=== PATIENT | male | born 1940 | race Caucasian/White ===

== ENCOUNTER 2017-03-20 00:08 | Emergency (ER) | payer MEDICARE ==
[~2017-03-20] VITALS: Ht 182.9 cm; Wt 110.0 kg
[~2017-03-20 00:08] MED LIST: ASPI81TA45 PO; MULT1TAB PO
[2017-03-20 00:18] VITALS: BP 159/78; PULSE 84; RESP 18; TEMP 98.3; O2SAT 98
[2017-03-20 00:20] VITALS: RESP 18; O2SAT 98
[2017-03-20] MEDS ORDERED: SODIUM CHLORIDE 0.9% FLUSH 10 ML FLUSH IVF PRN (00:30)
[2017-03-20 00:52] LABS: AUTOMATED NEUTROPHIL # 7.5 TH/MM3 (1.8-7.7); BASOPHIL % 0.3 % (0.0-2.0); EOSINOPHIL # 0.2 TH/MM3 (0-0.4); EOSINOPHIL % 1.6 % (0.0-4.0); HEMATOCRIT 42.7 % (39.0-51.0); HEMO FLAGS DIFF FINAL; LYMPH % 17.4 % (9.0-44.0); LYMPHOCYTE # 1.8 TH/MM3 (1.0-4.8); MEAN CELL VOLUME 91.1 FL (80.0-100.0); MEAN CORPUSCULAR HEMOGLOBIN 31.8 PG (27.0-34.0); MEAN CORPUSCULAR HGB CONC 34.8 % (32.0-36.0); MONO % 7.9 % (0.0-8.0); NEUT % 72.8 % (16.0-70.0); PLATELET COUNT 167 TH/MM3 (150-450); RED BLOOD COUNT 4.68 MIL/MM3 (4.50-5.90); RED CELL DISTRIBUTION WIDTH 14.2 % (11.6-17.2); WHITE BLOOD COUNT 10.3 TH/MM3 (4.0-11.0)
--- NOTE | 2017-03-20 00:53 | RADRPT ---
EXAM DATE/TIME: 03/20/2017 00:31 [facility] COMPARISON: CHEST SINGLE AP, October 21, 2015, 12:39. INDICATIONS : Shortness of breath. MEDICAL HISTORY : None. SURGICAL HISTORY : None. ENCOUNTER: Initial ACUITY: 1 day PAIN SCORE: 0/10 LOCATION: Bilateral chest FINDINGS: A single view of the chest demonstrates the lungs to be symmetrically aerated without evidence of mas s, infiltrate or effusion. The cardiomediastinal contours are unremarkable. Osseous structures are intact. CONCLUSION: 1. No acute cardiopulmonary disease. Jeramie Mckeon MD on March 20, 2017 at 0:51 Board Certified Radiologist. This report was verified electronically.
--- NOTE | 2017-03-20 00:58 | PD ---
HPI Chief Complaint: Respiratory Symptoms Time Seen by Provider: 00:15 Travel History International Travel<30 days: No Contact w/Intl Traveler<30days: No Traveled to known affect area: No History of Present Illness HPI 76-year-old male with history of sleep apnea on CPAP, brought in by ambulance after waking up from sleep feeling short of breath. EMS reports that his O2 saturation was 98% on room air when they arrived and he was in no apparent distress. Here in the emergency department the patient states he is feeling improved. He denies ever having chest pain. No fevers, chills, cough, or recent illness. He reports that he had a cardiac catheter about 6 months ago and was told that his vessels are clean. No history of DVT or PE. 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) Hepatitis: No Hiatal Hernia: No Immune Disorder: No Musculoskeletal: Yes (HX OF R KNEE REPLACEMENT) Neurologic: No Psychiatric: Yes (SOMEWHAT CLAUSTROPHOBIC) Reproductive: No Respiratory: Yes (SLEEP APNEA, USES CPAP) Radiation Therapy: Yes (PROSTATE) Sleep Apnea: Yes (cpap at night) Thyroid Disease: No Tetanus Vaccination: Unknown Influenza Vaccination: Yes PNEUMOCCOCAL Vaccine (Year): 1 Past Surgical History Abdominal Surgery: Yes (UMBILICAL HERNIA 30 YRS AGO ) Body Medical Devices: LENS LEFT EYE Cardiac Surgery: No Ear Surgery: No Endocrine Surgery: No Eye Surgery: Yes (CATARACT SURGERY L EYE 1998) Genitourinary Surgery: Yes Joint Replacement: Yes (TOTAL RIGHT KNEE) Oral Surgery: No Pacemaker: No Thoracic Surgery: No Other Surgery: Yes Social History Alcohol Use: No Tobacco Use: No Substance Use: No Allergies-Medications (Allergen,Severity, Reaction): Coded Allergies: Cephalexin (Verified Allergy, Intermediate, Diarrhea, 03/20/17) Penicillin (Unverified Adverse Reaction, Intermediate, DIARRHEA,N/V, DEHYDRATION, 03/20/17) Reported Meds & Prescriptions Reported Meds & Active Scripts Active No Active Prescriptions or Reported Medications Review of Systems Except as stated in HPI: all other systems reviewed are Neg Physical Exam Narrative GENERAL: Well-developed, well-nourished, comfortable, no acute distress. SKIN: Focused skin assessment warm/dry. HEAD: Atraumatic. Normocephalic. EYES: Pupils equal and round. No scleral icterus. No injection or drainage. ENT: Mucous membranes pink and moist. NECK: Trachea midline. No JVD. CARDIOVASCULAR: Regular rate and rhythm. RESPIRATORY: No accessory muscle use. Clear to auscultation. Breath sounds equal bilaterally. GASTROINTESTINAL: Abdomen soft, non-tender, nondistended. MUSCULOSKELETAL: No obvious deformities. No clubbing. No cyanosis. No edema. NEUROLOGICAL: Awake and alert. No obvious cranial nerve deficits. Motor grossly within normal limits. Normal speech. PSYCHIATRIC: Appropriate mood and affect; insight and judgment normal. Data Data Last Documented VS Vital Signs Date Time Temp Pulse Resp B/P Pulse Ox O2 Delivery O2 Flow Rate FiO2 03/20/17 00:20 18 98 Room Air 03/20/17 00:20 84 03/20/17 00:18 98.3 159/78 Orders Complete Blood Count With Diff (03/20/17 00:16) Comprehensive Metabolic Panel (03/20/17 00:16) B-Type Natriuretic Peptide (03/20/17 00:16) D-Dimer (03/20/17 00:16) Act Partial Throm Time (Ptt) (03/20/17 00:16) Prothrombin Time / Inr (Pt) (03/20/17 00:16) Ckmb (Isoenzyme) Profile (03/20/17 00:16) Troponin I (03/20/17 00:16) Iv Access Insert/Monitor (03/20/17 00:16) Electrocardiogram (03/20/17 00:16) Ecg Monitoring (03/20/17 00:16) Oximetry (03/20/17 00:16) Chest, Single Ap (03/20/17 00:16) Sodium Chloride 0.9% Flush (Ns Flush) (03/20/17 00:30) Ct Pulmonary Angiogram (03/20/17 01:03) CKMB (03/20/17 00:25) CKMB% (03/20/17 00:25) Iohexol 350 Inj (Omnipaque 350 Inj) (03/20/17 02:50) Labs Laboratory Tests Test 03/20/17 00:25 White Blood Count 10.3 TH/MM3 Red Blood Count 4.68 MIL/MM3 Hemoglobin 14.9 GM/DL Hematocrit 42.7 % Mean Corpuscular Volume 91.1 FL Mean Corpuscular Hemoglobin 31.8 PG Mean Corpuscular Hemoglobin 34.8 % Concent Red Cell Distribution Width 14.2 % Platelet Count 167 TH/MM3 Mean Platelet Volume 11.0 FL Neutrophils (%) (Auto) 72.8 % Lymphocytes (%) (Auto) 17.4 % Monocytes (%) (Auto) 7.9 % Eosinophils (%) (Auto) 1.6 % Basophils (%) (Auto) 0.3 % Neutrophils # (Auto) 7.5 TH/MM3 Lymphocytes # (Auto) 1.8 TH/MM3 Monocytes # (Auto) 0.8 TH/MM3 Eosinophils # (Auto) 0.2 TH/MM3 Basophils # (Auto) 0.0 TH/MM3 CBC Comment DIFF FINAL Differential Comment Prothrombin Time 11.2 SEC Prothromb Time International 1.0 RATIO Ratio Activated Partial 25.7 SEC Thromboplast Time D-Dimer Quantitative (PE/DVT) 1.57 MG/L FEU Sodium Level 141 MEQ/L Potassium Level 4.2 MEQ/L Chloride Level 111 MEQ/L Carbon Dioxide Level 23.8 MEQ/L Anion Gap 6 MEQ/L Blood Urea Nitrogen 16 MG/DL Creatinine 1.06 MG/DL Estimat Glomerular Filtration 68 ML/MIN Rate Random Glucose 111 MG/DL Calcium Level 8.2 MG/DL Total Bilirubin 0.5 MG/DL Aspartate Amino Transf 35 U/L (AST/SGOT) Alanine Aminotransferase 34 U/L (ALT/SGPT) Alkaline Phosphatase 142 U/L Total Creatine Kinase 124 U/L Creatine Kinase MB 1.5 NG/ML Troponin I LESS THAN 0.02 NG/ML B-Type Natriuretic Peptide 16 PG/ML Total Protein 7.0 GM/DL Albumin 3.3 GM/DL [facility] Medical Decision Making Medical Screen Exam Complete: Yes Emergency Medical Condition: Yes Medical Record Reviewed: Yes Interpretation(s) EKG: Sinus, rate 82, normal axis, normal intervals, no acute ischemic abnormality. Differential Diagnosis Pulmonary edema, ACS, PE, pneumothorax, pneumonia, panic attack Narrative Course Initial vital signs show heart rate 84, blood pressure 159/78, pulse ox 98% on room air, oral temp of 98.3F. CBC is unremarkable. CMP is unremarkable. BNP is 16. Cardiac concerns are negative. D-dimer is 1.57. Chest x-ray: No acute cardio pulmonary disease. CT pulmonary angiogram: CONCLUSION: 1. No evidence of pulmonary embolism. Patient was made aware of all findings. He is resting comfortably while in the emergency department. No further episodes of shortness of breath. He never had any chest pain. He believes he may have had a slight panic attack. I believe he is stable for discharge home with outpatient follow-up with his primary care physician this week. He was informed on when to return to the emergency department. He verbalizes understanding and agreement with plan. Diagnosis Primary Impression: Shortness of breath Referrals: Primary Care Physician 3 days Additional Instructions: Follow-up with your primary care physician this week. Return to the emergency department for worsening symptoms or any other concerns. Scripts No Active Prescriptions or Reported Meds Disposition: 01 DISCHARGE HOME Condition: Stable Edson Irby MD March 20, 2017 00:58
[2017-03-20 01:00] LABS: APTT (PATIENT) 25.7 SEC (24.3-30.1); PROTHROMBIN TIME - PATIENT 11.2 SEC (9.8-11.6)
[2017-03-20 01:06] LABS: ALKALINE PHOSPHATASE 142 U/L (45-117); ALT (GPT) 34 U/L (12-78); ANION GAP 6 MEQ/L (5-15); AST (GOT) 35 U/L (15-37); BICARBONATE 23.8 MEQ/L (21.0-32.0); BLOOD UREA NITROGEN 16 MG/DL (7-18); CHLORIDE 111 MEQ/L (98-107); CREATINE KINASE 124 U/L (39-308); GLOMERULAR FILTRATION RATE 68 ML/MIN (>89); POTASSIUM 4.2 MEQ/L (3.5-5.1); SODIUM (NA) 141 MEQ/L (136-145); TOTAL BILIRUBIN ADULT 0.5 MG/DL (0.2-1.0)
[2017-03-20 01:19] LABS: CKMB 1.5 NG/ML (0.5-3.6)
[2017-03-20] MEDS ORDERED: IOHEXOL 350 MG/ML 10 ML VIAL (for RAD DIAG) IV ONE (02:50)
--- NOTE | 2017-03-20 03:04 | RADRPT ---
EXAM DATE/TIME: 03/20/2017 02:46 [facility] COMPARISON: No previous studies available for comparison. INDICATIONS : Shortness of breath. Elevated D-Dimer. IV CONTRAST: 75 cc Omnipaque 350 (iohexol) IV RADIATION DOSE: 23.38 CTDIvol (mGy) MEDICAL HISTORY : Carcinoma, prostate. SURGICAL HISTORY : Umbilical hernia repair. Total knee replacement, right. ENCOUNTER: Initial ACUITY: 1 day PAIN SCALE: 0/10 LOCATION: chest TECHNIQUE: Volumetric scanning of the chest was performed using a pulmonary embolism protocol MIP images were re constructed. Using automated exposure control and adjustment of the mA and/or kV according to patien t size, radiation dose was kept as low as reasonably achievable to obtain optimal diagnostic quality images. FINDINGS: Examination of the pulmonary vasculature demonstrates good filling of the main, lobar and segmental b ranches. There are no filling defects to suggest pulmonary embolism. Multiplanar reconstructions are also unremarkable. Examination of the lung ross demonstrates no evidence of pulmonary nodule. No pleural fluid is iden tified. Examination of the mediastinum demonstrates no abnormally enlarged lymph nodes by CT criteria . No axillary or hilar abnormalities are identified. Coronary artery calcifications are not present. The visualized upper abdomen demonstrates no abnormality. CONCLUSION: 1. No evidence of pulmonary embolism. Jeramie Mckeon MD on March 20, 2017 at 3:01 Board Certified Radiologist. This report was verified electronically.
--- NOTE | 2017-03-20 08:36 | EKG ---
Date Performed: 03/20/2017 Time Performed: 00:16:13 PTAGE: 76 years EKG: Sinus rhythm NORMAL ECG PREVIOUS TRACING : 10/21/2015 15.08 DOCTOR: Constantin Toussaint Interpretating Date/Time 03/20/2017 08:35:11
== END 2017-03-20 03:32 | disposition home or self-care (01) ==
LOC: NEPE 00:08
DX: R06.02 Shortness of breath (principal); G47.30 Sleep apnea, unspecified
CPT/HCPCS: 71010; 71275; 80053; 82550; 82552; 83880; 84484; 85025; 85379; 85610; 85730; 93005; 99284; Q9967